=== PATIENT | female | born 1975 | race Caucasian/White ===

== ENCOUNTER 2020-08-07 08:57 | Emergency (ER) | payer BC ==
[~2020-08-07] VITALS: Ht 170.2 cm; Wt 104.5 kg
[2020-08-07 09:25] VITALS: BP 127/45; Ht 170.2 cm; Wt 104.5 kg
[2020-08-07] MEDS ORDERED: HYDROCODON-ACE1 EAC7 PO (12:03)
[2020-08-07] MEDS ORDERED: DICLOFENAC SODI50 MG PO (12:03)
[2020-08-07] MEDS ORDERED: CLEOCIN HCL300 MG PO (12:03)
== END 2020-08-07 12:37 | disposition home or self-care (01) ==
LOC: D.ER 08:57
DX: S82.401A Unspecified fracture of shaft of right fibula, initial encounter for closed fracture (principal); W01.10XA Fall on same level from slipping, tripping and stumbling with subsequent striking against unspecified object, initial encounter; Y93.9 Activity, unspecified; Y92.9 Unspecified place or not applicable; S61.411A Laceration without foreign body of right hand, initial encounter